=== PATIENT | female | born 1975 | race African-American/Black ===

== ENCOUNTER 2024-08-29 04:08 | Emergency (ER) | payer MEDICAID, OTHER ==
[~2024-08-29] VITALS: Ht 165.1 cm; Wt 59.0 kg
[2024-08-29 04:11] VITALS: O2SAT 99
[2024-08-29] MEDS: KETOROLAC 15MG/ML VIAL IM ONE (05:20)
[2024-08-29] MEDS: LIDOCAINE 5% PATCH TOP SCH (05:26)
[2024-08-29] MEDS ORDERED: NAPR-1176 MT (05:27)
[2024-08-29] MEDS ORDERED: LIDO-53 TP (05:27)
[2024-08-29] MEDS ORDERED: CYCL5TAB3 MT (05:27)
[2024-08-29 06:33] VITALS: BP 123/87; PULSE 92; RESP 17; TEMP 36.3; O2SAT 99
== END 2024-08-29 06:34 | disposition home or self-care (01) ==
LOC: ER 04:08
DX: R07.89 Other chest pain (principal); J45.909 Unspecified asthma, uncomplicated; F12.90 Cannabis use, unspecified, uncomplicated; Z88.0 Allergy status to penicillin
CPT/HCPCS: 99283; 96372; J1885